=== PATIENT | male | born 1965 | race Caucasian/White ===

== ENCOUNTER 2016-02-17 18:27 | Emergency (ER) | payer OTHER ==
[2016-02-17 19:05] VITALS: TEMP 97.4; O2SAT 100
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
[2016-02-17 21:38] VITALS: BP 132/82
== END 2016-02-17 21:38 | disposition home or self-care (01) ==
LOC: ER 18:27
DX: S90.31XA Contusion of right foot, initial encounter (principal); Z88.8 Allergy status to other drugs, medicaments and biological substances; V86.99XA Unspecified occupant of other special all-terrain or other off-road motor vehicle injured in nontraffic accident, initial encounter

== ENCOUNTER → 2017-04-05 | Outpatient (CLI) | payer OTHER | LOC: LAB.O 18:27 | PROVIDERS: ATTEND Family Medicine | DX: J02.0 Streptococcal pharyngitis (principal) ==

== ENCOUNTER 2019-09-06 17:42 | Emergency (ER) | payer OTHER ==
[2019-09-06 18:05] VITALS: O2SAT 98
--- NOTE | 2019-09-06 18:22 | ED.PDOC ---
History of Present Illness - General Stated Complaint: loss of taste, sore throat Time Seen by Provider: 09/06/19 18:13 Source: patient, RN notes reviewed, Vital Signs reviewed Exam Limitations: no limitations - History of Present Illness Initial Comments: Patient is a 54-year-old man who presents for sore throat and congestion. States for the past 7 days he has had nasal congestion and runny nose, subjective fever, he had diarrhea 1 day earlier in the week that has resolved. States today he was drinking an energy drink and could not taste the flavor so came to ED to be evaluated. Denies chest pain, difficulty breathing, vomiting, abdominal pain. He reports recent known COVID-19 exposure. Allergies/Adverse Reactions: Allergies Antihistamines, Diphenhydramine-typ Allergy (Verified 02/17/16 19:00) Home Medications: Ambulatory Orders NK 09/06/19 Review of Systems - Review of Systems Constitutional: Denies: chills, fever, weakness EENTM: States: nose congestion, throat pain. Denies: ear pain Respiratory: States: cough. Denies: short of breath Cardiology: Denies: chest pain, palpitations, syncope Gastrointestinal/Abdominal: Denies: abdominal pain, nausea, vomiting Musculoskeletal: Denies: back pain, neck pain Skin: States: no symptoms reported All other Systems: Reviewed and Negative Past Medical History (General) - Patient Medical History Hx Asthma: No Hx Congestive Heart Failure: No Hx Cancer: No Hx Hepatitis C: No Surgical History: no surgical history - Vaccination History Hx Tetanus, Diphtheria Vaccination: - unsure Hx Influenza Vaccination: Yes - Social History Hx Tobacco Use: No Hx Alcohol Use: Yes - social - Activities of Daily Living Hospice Agency (if applicable):: None - Female History Patient is a Female of Child Bearing Age (10 -59 yrs old): No Patient : No Family Medical History - Family History Mother Living Status: Hx Cardiac Disease: Yes - [place] Father Living Status: Hx Family Cancer: Yes - bone, lung Physical Exam - Physical Exam General Appearance: Alert, Comfortable, No apparent distress Ears, Nose, Throat: other - Oropharynx has no erythema, edema or exudates. Neck: full range of motion, supple Respiratory: chest non-tender, lungs clear, normal breath sounds, no respiratory distress, no accessory muscle use Cardiovascular/Chest: regular rate, rhythm, no murmur Gastrointestinal/Abdominal: non tender, soft, no pulsatile mass Extremity: normal range of motion, non-tender, normal inspection, no pedal edema Neurologic: no motor/sensory deficits, alert, normal mood/affect, oriented x 3 Skin Exam: normal color, warm/dry Progress - Progress Progress: 09/06/19 18:23 Patient presents to ED with 1 week history of upper respiratory symptoms but seem to be improving per patient. He denies fever or shortness of breath. States he came because today he could not taste his energy drink and is concerned he might have COVID-19. I have discussed with patient that emergently we are testing people that possibly require admission. He has no respiratory distress hypoxia and is stable for outpatient treatment. I have given him resources to follow-up in outpatient clinic for further testing. Will take over -the-counter decongestants for congestion as needed. Strict return precautions given. Departure - Departure Clinical Impression: URI (upper respiratory infection) Qualifiers: URI type: unspecified URI Qualified Code(s): J06.9 - Acute upper respiratory infection, unspecified Time of Disposition: 18:25 Disposition: Discharge to Home or Self Care Condition: Good Instructions: Viral Upper Respiratory Infection, Adult (DC) Diet: resume usual diet Activity: increase activity as tolerated Referrals: Delvin Patino MD [Primary Care Provider] - 1-2 Days Home Medications: Ambulatory Orders NK 09/06/19
[2019-09-06 18:38] VITALS: BP 133/81; TEMP 98
== END 2019-09-06 18:33 | disposition home or self-care (01) ==
LOC: ER 17:42
DX: J06.9 Acute upper respiratory infection, unspecified (principal); R43.9 Unspecified disturbances of smell and taste; Z20.828 Contact with and (suspected) exposure to other viral communicable diseases

== ENCOUNTER → 2019-09-12 | Outpatient (CLI) | payer OTHER | LOC: GMAM 16:56 | PROVIDERS: ATTEND Family Medicine | DX: U07.1 COVID-19 (principal) ==